=== PATIENT | female | born 1990 | race Hispanic/Latino ===

== ENCOUNTER 2020-02-11 15:00 | Emergency (ER) | payer OTHER ==
[2020-02-11] MEDS ORDERED: IBUPROFEN 400 MG TAB ONE (15:49)
[2020-02-11] MEDS ORDERED: IBUPROFEN 200 MG TAB PO ONE (15:49)
--- NOTE | 2020-02-11 16:58 | RAD REPORT ---
EXAM DESCRIPTION: CT - [id number] - 02/11/2020 4:33 pm CLINICAL HISTORY: fall/Head injury;Pain, slip and fall with head and neck injury COMPARISON: No comparisons TECHNIQUE: Axial 5 mm thick images of the head were obtained. Axial 2 mm thick images of the cervic al spine were obtained with sagittal and coronal reconstruction images generated and reviewed. All CT scans are performed using dose optimization technique as appropriate and may include automated exposure control or mA/KV adjustment according to patient size. FINDINGS: No intracranial hemorrhage, mass, edema or acute intracranial finding. No suspicion for ac [place] infarction. No extra-axial fluid collections. Mastoid air cells and paranasal sinuses are clear. No globe or orbit abnormality seen. Ventricles are normal. Cervical bodies are normal in height. Subluxation abnormality. Straightening of the usual cervical lo rdosis could be muscle spasm or positioning affect. No disk space narrowing. No fracture or acute bon y abnormality. Central canal detail is inherently limited. No paraspinal mass or hematoma. IMPRESSION: Negative CT head examination for acute or significant finding. Negative CT cervical spine examination for acute or significant finding.
[2020-02-11 18:21] VITALS: BP 111/69; TEMP 98.2; O2SAT 100
--- NOTE | 2020-02-16 14:32 | ER ---
Nurse's Notes [facility] Name: Herminia Landrum Age: 29 yrs Sex: Female : 1990 Arrival Date: 02/11/2020 Time: 15:05 Bed 5 Private MD: Diagnosis: Headache;Superficial injury of head Presentation: 02/10 15:19 Chief complaint: Patient states: Slipped Sunday night 02/07 on wet surface. Hit back of dm5 head on cooler then concrete. Friends told her what happened the next day. MASTERSON since. Dull painful ringing to both ears at times. No N/V. Coronavirus screen: Proceed with normal triage. Patient denies a cough. Patient denies shortness of breath or difficulty breathing. Patient denies measured and/or subjective temperature greater than 100.4F prior to today's visit. Patient denies travel on a cruise ship or to a country the [facility] currently lists as an affected area. Patient denies contact with known and/or suspected case of COVID-19. Ebola Screen: Patient denies travel to an Ebola-affected area in the 21 days before illness onset. Initial Sepsis Screen: Does the patient meet any 2 criteria? No. Patient's initial sepsis screen is negative. Does the patient have a suspected source of infection? No. Patient's initial sepsis screen is negative. Risk Assessment: Do you want to hurt yourself or someone else? Patient reports no desire to harm self or others. Onset of symptoms was February 08, 2020. 15:19 Method Of Arrival: Ambulatory 5 15:19 Acuity: ABIDA 3 dm5 Historical: - Allergies: 15:22 No Known Allergies; dm5 - PSHx: 15:22 None; tubes tied; dm5 - Immunization history:: Flu vaccine is not up to date. - Social history:: Smoking status: Patient denies any tobacco usage or history of. Patient uses alcohol, only on a social basis. Patient/guardian denies using street drugs. Screenin:35 Abuse screen: Denies threats or abuse. Denies injuries from another. Nutritional sv screening: No deficits noted. Tuberculosis screening: No symptoms or risk factors identified. Fall Risk None identified. Assessment: 15:35 General: Appears in no apparent distress. uncomfortable, well developed, Behavior is sv calm, cooperative, appropriate for age. Pain: Complains of pain in base of the skull Pain currently is 8 out of 10 on a pain scale. Pain began Sunday Is intermittent. Neuro: Level of Consciousness is awake, alert, obeys commands, Oriented to person, place, time, situation, Moves all extremities. Full function Gait is steady, Speech is normal, Reports headache occipital area. Respiratory: Airway is patent Respiratory effort is even, unlabored, Respiratory pattern is regular, symmetrical. Derm: Skin is pink, warm \T\ dry. Musculoskeletal: Range of motion: intact in all extremities. 16:38 Reassessment: Patient appears in no apparent distress at this time. No changes from sv previously documented assessment. Patient and/or family updated on plan of care and expected duration. Pain level reassessed. Patient is alert, oriented x 3, equal unlabored respirations, skin warm/dry/pink. 17:41 Reassessment: Patient appears in no apparent distress at this time. No changes from sv previously documented assessment. Patient and/or family updated on plan of care and expected duration. Pain level reassessed. Patient is alert, oriented x 3, equal unlabored respirations, skin warm/dry/pink. Vital Signs: 15:19 BP 111 / 69; Pulse 56; Resp 16; Temp 98.2; Pulse Ox 100% ; Weight 54.43 kg; Height 4 dm5 ft. 11 in. (149.86 cm); Pain 8/10; 15:19 Body Mass Index 24.24 (54.43 kg, 149.86 cm) dm5 ED Course: 15:05 Patient arrived in ED. mr 15:22 Triage completed. dm5 15:22 Arm band placed on Patient notified of wait time. dm5 15:32 Logan Nova MD is Attending Physician. kdr 15:35 Patient has correct armband on for positive identification. Bed in low position. Call sv light in reach. Door closed. Head of bed elevated. 15:39 Aylin Corona, JUSTICE is Primary Nurse. sv 15:39 ED physician to see patient. sv 16:[address]. sv 16:38 Awaiting radiology results. sv 16:55 CT Head C Spine Sent. sv 17:01 Awaiting radiology results. sv 17:41 No provider procedures requiring assistance completed. Patient did not have IV access sv during this emergency room visit. Administered Medications: 15:45 Drug: Motrin 600 mg Route: PO; sv 16:38 Follow up: Response: No adverse reaction sv Outcome: 17:21 Discharge ordered by . kdr 17:42 Discharged to home ambulatory. sv 17:42 Condition: stable 17:42 Discharge instructions given to patient, Instructed on discharge instructions, follow up and referral plans. head injury precautions Demonstrated understanding of instructions, follow-up care. 17:42 Patient left the ED. sv Signatures: Yue Bhat RN RN dmAylin Forbes RN RN sv Rittger, Kevin, MD MD kdr Melany Julien mr
--- NOTE | 2020-02-16 14:33 | EDPHYS ---
Physician Documentation [facility] Name: Herminia Landrum Age: 29 yrs Sex: Female : 1990 Arrival Date: 02/11/2020 Time: 15:05 Bed 5 Private MD: ED Physician Logan Nova HPI: 02/11 09:29 This 29 yrs old Female presents to ER via Ambulatory with complaints of Fall kdr Injury. 09:29 This 29 yrs old Female presents to ER via Ambulatory with complaints of Fall kdr Injury with head and neck pain. 09:29 Details of fall: The patient fell from an upright position, while standing. Onset: The kdr symptoms/episode began/occurred suddenly, Sunday. Associated injuries: The patient sustained injury to the head, contusion, pain, neck injury, pain with movement, tenderness, Musculoskeletal pain. Severity of symptoms: At their worst the symptoms were mild, in the emergency department the symptoms are unchanged. The patient has not experienced similar symptoms in the past. The patient has not recently seen a physician. Historical: - Allergies: 02/10 15:22 No Known Allergies; dm5 - PSHx: 15:22 None; tubes tied; dm5 - Immunization history:: Flu vaccine is not up to date. - Social history:: Smoking status: Patient denies any tobacco usage or history of. Patient uses alcohol, only on a social basis. Patient/guardian denies using street drugs. ROS: 02/11 09:29 Constitutional: Negative for fever, chills, and weight loss, Eyes: Negative for injury, kdr pain, redness, and discharge, ENT: Negative for injury, pain, and discharge, Neck: Negative for injury, pain, and swelling, Cardiovascular: Negative for chest pain, palpitations, and edema, Respiratory: Negative for shortness of breath, cough, wheezing, and pleuritic chest pain, Abdomen/GI: Negative for abdominal pain, nausea, vomiting, diarrhea, and constipation, Back: Negative for injury and pain, : Negative for injury, bleeding, discharge, and swelling, MS/Extremity: Negative for injury and deformity, Skin: Negative for injury, rash, and discoloration, Psych: Negative for depression, anxiety, suicide ideation, homicidal ideation, and hallucinations, Allergy/Immunology: Negative for hives, rash, and allergies, Endocrine: Negative for neck swelling, polydipsia, polyuria, polyphagia, and marked weight changes, Hematologic/Lymphatic: Negative for swollen nodes, abnormal bleeding, and unusual bruising. Neuro: Positive for headache, Negative for dizziness, gait disturbance, loss of consciousness, numbness, seizure activity, speech changes, syncope, near syncope, tingling, tinnitus, tremor, visual changes, weakness. Exam: 09:29 Constitutional: This is a well developed, well nourished patient who is awake, alert, kdr and in no acute distress. Head/Face: Normocephalic, atraumatic. Eyes: Pupils equal round and reactive to light, extra-ocular motions intact. Lids and lashes normal. Conjunctiva and sclera are non-icteric and not injected. Cornea within normal limits. Periorbital areas with no swelling, redness, or edema. Neck: Trachea midline, no thyromegaly or masses palpated, and no cervical lymphadenopathy. Supple, full range of motion without nuchal rigidity, or vertebral point tenderness. No Meningismus. Chest/axilla: Normal chest wall appearance and motion. Nontender with no deformity. No lesions are appreciated. Cardiovascular: Regular rate and rhythm with a normal S1 and S2. No gallops, murmurs, or rubs. Normal PMI, no JVD. No pulse deficits. Respiratory: Lungs have equal breath sounds bilaterally, clear to auscultation and percussion. No rales, rhonchi or wheezes noted. No increased work of breathing, no retractions or nasal flaring. Abdomen/GI: Soft, non-tender, with normal bowel sounds. No distension or tympany. No guarding or rebound. No evidence of tenderness throughout. Back: No spinal tenderness. No costovertebral tenderness. Full range of motion. Skin: Warm, dry with normal turgor. Normal color with no rashes, no lesions, and no evidence of cellulitis. MS/ Extremity: Pulses equal, no cyanosis. Neurovascular intact. Full, normal range of motion. Neuro: Awake and alert, GCS 15, oriented to person, place, time, and situation. Cranial nerves II-XII grossly intact. Motor strength 5/5 in all extremities. Sensory grossly intact. Cerebellar exam normal. Normal gait. Psych: Awake, alert, with orientation to person, place and time. Behavior, mood, and affect are within normal limits. Vital Signs: 02/10 15:19 BP 111 / 69; Pulse 56; Resp 16; Temp 98.2; Pulse Ox 100% ; Weight 54.43 kg; Height 4 dm5 ft. 11 in. (149.86 cm); Pain 8/10; 15:19 Body Mass Index 24.24 (54.43 kg, 149.86 cm) dm5 MDM: 17:21 Patient medically screened. kdr 02/11 09:29 Data reviewed: vital signs, nurses notes, lab test result(s), radiologic studies. kdr Counseling: I had a detailed discussion with the patient and/or guardian regarding: the historical points, exam findings, and any diagnostic results supporting the discharge/admit diagnosis, radiology results, the need for outpatient follow up. 02/10 15:39 Order name: CT Head C Spine kdr Administered Medications: 02/10 15:45 Drug: Motrin 600 mg Route: PO; sv 16:38 Follow up: Response: No adverse reaction sv Disposition: 02/11/20 17:21 Discharged to Home. Impression: Headache, Superficial injury of head. - Condition is Stable. - Discharge Instructions: Concussion, Adult, [id number], Head Injury, Adult, [id number]. - Medication Reconciliation Form, Thank You Letter form. - Follow up: Private Physician; When: 2 - 3 days; Reason: If symptoms return, Further diagnostic work-up, Recheck today's complaints, Continuance of care, Re-evaluation by your physician. - Problem is new. - Symptoms are unchanged. Signatures: Dispatcher [employer] Yue Vegas RN RN dm5 Aylni Corona RN RN Logan Nova MD MD kdr Corrections: (The following items were deleted from the chart) 17:42 17:21 02/11/2020 17:21 Discharged to Home. Impression: Headache; Superficial injury of sv head. Condition is Stable. Forms are Medication Reconciliation Form, Thank You Letter, Antibiotic Education, Prescription Opioid Use. Follow up: Private Physician; When: 2 - 3 days; Reason: If symptoms return, Further diagnostic work-up, Recheck today's complaints, Continuance of care, Re-evaluation by your physician. Problem is new. Symptoms are unchanged. kdr
== END 2020-02-11 17:42 | disposition home or self-care (01) ==
LOC: ER 15:00
DX: S00.90XA Unspecified superficial injury of unspecified part of head, initial encounter (principal); W19.XXXA Unspecified fall, initial encounter; Y93.89 Activity, other specified; Y92.9 Unspecified place or not applicable
CPT/HCPCS: 70450; 72125; 99284